=== PATIENT | female | born 1980 | race African-American/Black ===

== ENCOUNTER 2021-06-02 11:19 | Day surgery (SDC) | payer BC ==
[2021-06-02] MEDS ORDERED: CEFOXITIN/SWI 1gm 2 GM/20 ML SYR ONE (12:11)
[2021-06-02] MEDS ORDERED: Ringers Lactate 1,000 ML IV ONE (12:11)
[2021-06-02] MEDS ORDERED: BUPIVACAINE 0.25% PF 30 ML VIAL ONE (13:19)
[2021-06-02] MEDS ORDERED: propofoL 200 MG/20 ML VIAL IV ONE (13:28)
[2021-06-02] MEDS ORDERED: LIDOCAINE 2% MPF 5 ML VIAL ONE (13:28)
[2021-06-02] MEDS ORDERED: dexAMETHasone 10 MG/ML VIAL ONE (13:28)
[2021-06-02] MEDS ORDERED: ROCURONIUM 50 MG/5 ML VIAL IV ONE (13:28)
[2021-06-02] MEDS ORDERED: MIDAZOLAM HCL 2 MG/2 ML INJ ONE (13:28)
[2021-06-02] MEDS ORDERED: FENTANYL CITR 100 MCG/2 ML ONE (13:28)
[2021-06-02] MEDS ORDERED: ONDANSETRON 4 MG/2 ML VIAL ONE (13:29)
--- NOTE | 2021-06-02 14:42 | P.OP ---
Preoperative diagnosis: Cholecystitis with Cholelithiasis Postoperative diagnosis: Cholecystitis with Cholelithiasis Primary procedure: Laparoscopic cholecystecomy Secondary procedure: ICG Cholangiography Anesthesia: GETA + Local Estimated blood loss: <5cc Specimen: gallbladder Findings: distended GB with stones Complications: None Transferred to: Recovery Room Condition: Good
[2021-06-02] MEDS ORDERED: NEOSTIGMINE 1 MG/ML -5 ML ONE (14:57)
[2021-06-02] MEDS ORDERED: GLYCOPYRROLATE 0.2 MG/ML SYR ONE (14:57)
[2021-06-02] MEDS ORDERED: KETOROLAC 30 MG/ML INJ ONE (15:00)
[2021-06-02] MEDS: MORPHINE 4 MG/ML SYR ONE ×2 (15:08→15:22)
[2021-06-02] MEDS: MEPERIDINE HCL 25 MG/ML SYR ONE ×2 (15:12→15:29)
--- NOTE | 2021-06-02 15:28 | OP ---
Date of Procedure: 06/02/2021 Surgeon: Ryan Gracia MD, Preoperative Diagnosis: Cholecystitis with cholelithiasis. Postoperative Diagnosis: Cholecystitis with cholelithiasis. Procedures Performed: 1.Laparoscopic cholecystectomy. 2.ICG cholangiography. Anesthesia: General endotracheal plus local with 0.25% Marcaine. Estimated Blood Loss: Less than 5 mL. Specimen: Gallbladder. Findings: 1.Distended gallbladder with stones. 2.Inflammatory changes to the right lower quadrant with omental attachments to the anterior surface of the gallbladder requiring adhesiolysis. Complications: None. Disposition: The patient was transferred to recovery room in good condition. Procedure In Detail: After informed consent was obtained, the patient was brought to the operating r oom, prepped and draped in the usual sterile fashion after adequate anesthesia achieved. Supraumbili malika area was anesthetized with 0.25% Marcaine and sharply incised. A 5 mm 0-degree optical trocar wa s introduced into the abdomen without evidence of complication. Insufflation was obtained to 15 mmHg at this time. There was no injury to vital structures upon entry into the abdomen. Two additional trocars were placed, 1 in the right epigastrium and 1 in the right upper quadrant. Both of these sim ilarly anesthetized and sharply incised. A 5 mm trocar was placed under direct visualization without evidence of complication. The umbilical trocar was then up-sized to a 12 mm under direct visualizat ion without evidence of complication. The patient was positioned in head up with right-side up posit ion. Ratcheted graspers were used to grasp the patient's gallbladder placed towards the patient's ri ght shoulder. Dissection continued down to take the omental attachments off the anterior surface of the gallbladder to expose the Reema pouch of the gallbladder. ICG cholangiography was used during the procedure to visualize the common duct, cystic duct junction and ensure a safe procedure was per formed clipping only the cystic duct and cystic artery after the critical view of safety was obtained at this point after skeletonizing the 2 structures identified into the cystic duct and cystic artery . Double titanium clips were placed on both the proximal side and singly on the distal side of both the cystic duct and cystic artery and these structures were ligated with Endo Edwin. After this was performed, the gallbladder was removed from the hepatic fossa without evidence of complication and p laced in EndoCatch bag, removed through the umbilical trocar. At this point, the area was copiously irrigated multiple times and found to be completely clean and dry. The gallbladder was sent off for pathologic examination at this point. After the patient positioned back in neutral position, the rem aining effluent was suctioned out and was found to be in good position at the end of the procedure. I then removed the umbilical trocar. I closed the umbilical trocar site using a Blade-Cammy sutu re passer with 0 Vicryl in interrupted fashion and good approximation of tissues. At this point, the abdomen was completely desufflated under direct visualization without evidence of complication. Rem aining trocars were removed. All skin incisions were copiously irrigated and closed with 4-0 Monocry l in a running fashion. Dermabond placed over top. The patient tolerated the procedure well without evidence of complication and transferred to PACU in good condition. All counts were correct at the end of the case. ABBE/MELVA Voice ID: [id number] Report ID: [id number]
[2021-06-02 15:32] VITALS: O2SAT 100
[2021-06-02 17:08] VITALS: TEMP 97.3
[2021-06-02 17:09] VITALS: BP 139/89
== END 2021-06-02 17:00 | disposition home or self-care (01) ==
LOC: OR 11:19
PROVIDERS: ATTEND Surgery
PROC: BF03YZZ Plain Radiography of Gallbladder and Bile Ducts using Other Contrast (ICD-10-PCS; 2021-06-02)
PROC: 0FT44ZZ Resection of Gallbladder, Percutaneous Endoscopic Approach (ICD-10-PCS; principal; 2021-06-02 13:00)
DX: K80.10 Calculus of gallbladder with chronic cholecystitis without obstruction (principal)
CPT/HCPCS: 81025; 88304; 47563; J2704; J2250; J3010; J1100; J2175; J2710; J7120; J2405